=== PATIENT | male | born 1970 | race Caucasian/White ===

== ENCOUNTER 2017-11-14 16:40 | Emergency (ER) | payer SELFPAY ==
[~2017-11-14] VITALS: Ht 160 cm; Wt 123.0 kg
[~2017-11-14 16:40] MED LIST: HYPERTENSION MEDS
[2017-11-14 16:50] VITALS: BP 155/108
== END 2017-11-14 20:50 | disposition home or self-care (01) ==
LOC: ER 17:33
DX: S90.521A Blister (nonthermal), right ankle, initial encounter (principal); E11.9 Type 2 diabetes mellitus without complications; I10 Essential (primary) hypertension; F17.200 Nicotine dependence, unspecified, uncomplicated; X58.XXXA Exposure to other specified factors, initial encounter; Y93.89 Activity, other specified; Y92.89 Other specified places as the place of occurrence of the external cause; Y99.8 Other external cause status
CPT/HCPCS: 99281

== ENCOUNTER 2023-02-12 10:02 | Inpatient (IN) | payer OTHER ==
[~2023-02-12] VITALS: Ht 160 cm; Wt 127.0 kg
[2023-02-12 11:25] LABS: BASOPHILS % 0.5 % (0.0-2.0); EOSINOPHILS % 0.1 % (0.0-5.0); HEMATOCRIT. 46.3 % (42.0-52.0); HEMOGLOBIN. 15.9 g/dL (14.0-18.0); LYMPHOCYTES % 10.2 % (20.0-50.0); MEAN CORPUSCULAR HEMOGLOBIN 31.8 pg (28.0-32.0); MEAN CORPUSCULAR VOLUME 92.4 fL (80.0-94.0); MEAN PLATELET VOLUME 9.1 fl (7.4-10.4); MONOCYTES % 5.5 % (2.0-8.0); NEUTROPHILS % 83.7 % (40.0-76.0); PLATELET 163 x1000/uL (130-400); RED BLOOD CELL COUNT 5.02 mill/uL (4.7-6.1); RED CELL DISTRIBUTION WIDTH 13.6 % (11.6-14.6)
[2023-02-12 11:38] LABS: CHLORIDE 98 mEq/L (98-107)
[2023-02-12] MEDS ORDERED: VANCOMYCIN 1G PREMIX 200 ML IV NR (12:00)
[2023-02-12] MEDS ORDERED: KETOROLAC 30MG/ML VIAL IV NR (12:00)
[2023-02-12] MEDS ORDERED: SODIUM CHLORIDE 0.9% 1,000 ML IV ONE (12:00)
[2023-02-12] MEDS ORDERED: PIPERACILLIN/TAZ 3.375G PREMIX 50 ML IV NR (12:00)
[2023-02-12] MEDS ORDERED: ACETAMINOPHEN 325MG TABLET PO NR (18:35)
[2023-02-12 21:00] VITALS: BP 129/76
[2023-02-12 22:41] VITALS: BP 129/76
[2023-02-12] MEDS ORDERED: ACETAMINOPHEN 325MG TABLET PO PRN ×2 (23:00)
[2023-02-12] MEDS ORDERED: ONDANSETRON HCL 4MG/2ML INJ IV PRN (23:00)
[2023-02-12] MEDS ORDERED: DOCUSATE SODIUM 100MG CAPSULE PO PRN (23:00)
[2023-02-12] MEDS ORDERED: CEFTRIAXONE 1GM PREMIX 50 ML IV SCH (23:00)
[2023-02-12] MEDS ORDERED: LORAZEPAM 0.5MG TABLET PO PRN (23:00)
[2023-02-12] MEDS ORDERED: IPRATROPIUM/ALBUTEROL 0.5-3(2.5)MG/3ML NEB HHN PRN (23:00)
[2023-02-12] MEDS: HYDROCODONE/ACETAMINOPHEN 5/325MG TABLET PO PRN (23:36)
[2023-02-13] VITALS: BP 131/73
[2023-02-13] MEDS ORDERED: DEXTROSE 50% WATER 50ML SYRINGE IV PRN
[2023-02-13] MEDS: CEFTRIAXONE 1,000 MG in DEXTROSE 5% WATER 50 ML IV SCH (02:29)
[2023-02-13 04:00] VITALS: BP 130/76
[2023-02-13 05:41] LABS: BASOPHILS % 0.2 % (0.0-2.0); EOSINOPHILS % 0.8 % (0.0-5.0); HEMATOCRIT. 44.6 % (42.0-52.0); LYMPHOCYTES % 10.5 % (20.0-50.0); MEAN CORPUSCULAR HEMOGLOBIN 31.7 pg (28.0-32.0); MEAN CORPUSCULAR VOLUME 94.2 fL (80.0-94.0); MEAN PLATELET VOLUME 9.8 fl (7.4-10.4); MONOCYTES % 6.9 % (2.0-8.0); NEUTROPHILS % 81.6 % (40.0-76.0); PLATELET 137 x1000/uL (130-400); RED BLOOD CELL COUNT 4.74 mill/uL (4.7-6.1); RED CELL DISTRIBUTION WIDTH 13.7 % (11.6-14.6)
[2023-02-13 06:01] LABS: CHLORIDE 100 mEq/L (98-107)
[2023-02-13] MEDS: BLOOD SUGAR DIAGNOSTIC STRIP TEST SCH ×4 (07:20→21:45)
[2023-02-13 08:00] VITALS: BP 133/90
[2023-02-13] MEDS: INSULIN LISPRO 100 UNITS/ML SUBCUT SCH ×4 (09:14→21:45)
[2023-02-13 12:00] VITALS: BP 108/66
[2023-02-13] MEDS: VANCOMYCIN 1G PREMIX 200 ML IV SCH ×2 (13:00→21:18)
[2023-02-13 16:00] VITALS: BP 137/79
[2023-02-13 20:00] VITALS: BP 164/88
[2023-02-13] MEDS: CLONIDINE 0.1MG TABLET PO PRN (21:19)
[2023-02-13] MEDS: HYDROCODONE/ACETAMINOPHEN 5/325MG TABLET PO PRN (21:20)
[2023-02-14] VITALS: BP 123/81
[2023-02-14] MEDS: CEFTRIAXONE 1,000 MG in DEXTROSE 5% WATER 50 ML IV SCH (02:23)
[2023-02-14 04:00] VITALS: BP 132/81
[2023-02-14] MEDS: VANCOMYCIN 1G PREMIX 200 ML IV SCH (05:38)
[2023-02-14] MEDS: BLOOD SUGAR DIAGNOSTIC STRIP TEST SCH ×4 (07:20→21:31)
[2023-02-14] MEDS: INSULIN LISPRO 100 UNITS/ML SUBCUT SCH ×4 (07:50→21:08)
[2023-02-14 12:00] VITALS: BP 98/50
[2023-02-14 13:01] LABS: CHLORIDE 101 mEq/L (98-107)
[2023-02-14] MEDS: VANCOMYCIN 1.25GM PMX (XELLIA) 250 ML IV SCH ×2 (14:47→21:03)
[2023-02-14 16:00] VITALS: BP 114/83
[2023-02-14 20:00] VITALS: BP 143/78
[2023-02-14] MEDS: HYDROCODONE/ACETAMINOPHEN 5/325MG TABLET PO PRN (21:37)
[2023-02-15] VITALS: BP 131/81
[2023-02-15] MEDS: CEFTRIAXONE 1,000 MG in DEXTROSE 5% WATER 50 ML IV SCH (01:17)
[2023-02-15 04:00] VITALS: BP 140/83
[2023-02-15] MEDS: VANCOMYCIN 1.25GM PMX (XELLIA) 250 ML IV SCH ×2 (06:20→15:12)
[2023-02-15 07:55] LABS: BASOPHILS % 0.4 % (0.0-2.0); EOSINOPHILS % 2.1 % (0.0-5.0); HEMATOCRIT. 42.8 % (42.0-52.0); HEMOGLOBIN. 14.9 g/dL (14.0-18.0); LYMPHOCYTES % 14.7 % (20.0-50.0); MEAN CORPUSCULAR HEMOGLOBIN 32.3 pg (28.0-32.0); MEAN CORPUSCULAR VOLUME 92.8 fL (80.0-94.0); MEAN PLATELET VOLUME 9.9 fl (7.4-10.4); MONOCYTES % 11.3 % (2.0-8.0); NEUTROPHILS % 71.5 % (40.0-76.0); PLATELET 185 x1000/uL (130-400); RED BLOOD CELL COUNT 4.61 mill/uL (4.7-6.1); RED CELL DISTRIBUTION WIDTH 13.4 % (11.6-14.6)
[2023-02-15] MEDS: BLOOD SUGAR DIAGNOSTIC STRIP TEST SCH ×4 (07:56→21:36)
[2023-02-15 08:00] VITALS: BP 128/81
[2023-02-15 08:28] LABS: CHLORIDE 99 mEq/L (98-107)
[2023-02-15] MEDS: INSULIN LISPRO 100 UNITS/ML SUBCUT SCH ×4 (08:54→21:11)
[2023-02-15 11:52] LABS: CHLORIDE 101 mEq/L (98-107)
[2023-02-15 12:00] VITALS: BP 135/86
[2023-02-15] MEDS: VANCOMYCIN 1500MG in DEXTROSE 5% WATER 250ML IV SCH ×2 (14:00→22:00)
[2023-02-15 16:00] VITALS: BP 117/86
[2023-02-15 20:00] VITALS: BP 144/85
[2023-02-15] MEDS: HYDROCODONE/ACETAMINOPHEN 5/325MG TABLET PO PRN (21:13)
[2023-02-16] VITALS: BP 154/107
[2023-02-16] MEDS: VANCOMYCIN 1500MG in DEXTROSE 5% WATER 250ML IV SCH ×3 (01:04→18:00)
[2023-02-16] MEDS: CEFTRIAXONE 1,000 MG in DEXTROSE 5% WATER 50 ML IV SCH (01:05)
[2023-02-16] MEDS: BLOOD SUGAR DIAGNOSTIC STRIP TEST SCH ×4 (07:20→21:46)
[2023-02-16 08:00] VITALS: BP 165/90
[2023-02-16 08:08] LABS: BASOPHILS % 0.6 % (0.0-2.0); EOSINOPHILS % 2.7 % (0.0-5.0); HEMATOCRIT. 44.2 % (42.0-52.0); HEMOGLOBIN. 15.3 g/dL (14.0-18.0); LYMPHOCYTES % 20.2 % (20.0-50.0); MEAN CORPUSCULAR HEMOGLOBIN 32.2 pg (28.0-32.0); MEAN CORPUSCULAR VOLUME 93.3 fL (80.0-94.0); MEAN PLATELET VOLUME 9.4 fl (7.4-10.4); NEUTROPHILS % 65.5 % (40.0-76.0); PLATELET 214 x1000/uL (130-400); RED BLOOD CELL COUNT 4.74 mill/uL (4.7-6.1); RED CELL DISTRIBUTION WIDTH 13.3 % (11.6-14.6)
[2023-02-16] MEDS: INSULIN LISPRO 100 UNITS/ML SUBCUT SCH ×4 (09:35→21:51)
[2023-02-16 12:00] VITALS: BP 117/87
[2023-02-16 12:22] LABS: CHLORIDE 101 mEq/L (98-107)
[2023-02-16 16:00] VITALS: BP 124/78
[2023-02-16 20:00] VITALS: BP 154/77
[2023-02-17] VITALS: BP 188/81
[2023-02-17] MEDS: CLONIDINE 0.1MG TABLET PO PRN (00:08)
[2023-02-17] MEDS: CEFTRIAXONE 1,000 MG in DEXTROSE 5% WATER 50 ML IV SCH (01:41)
[2023-02-17] MEDS: VANCOMYCIN 1500MG in DEXTROSE 5% WATER 250ML IV SCH (02:10)
[2023-02-17 04:00] VITALS: BP 146/96
[2023-02-17] MEDS: BLOOD SUGAR DIAGNOSTIC STRIP TEST SCH ×2 (07:44→12:01)
[2023-02-17] MEDS: INSULIN LISPRO 100 UNITS/ML SUBCUT SCH ×2 (09:43→12:54)
[2023-02-17] MEDS ORDERED: SULF1TAB48 MT (11:30)
[2023-02-17] MEDS ORDERED: AMOX1TAB16 MT (11:30)
[2023-02-17 13:36] VITALS: BP 138/85
[2023-02-17] MEDS ORDERED: VANCOMYCIN 1.25GM PMX (XELLIA) 250 ML IV SCH (14:00)
== END 2023-02-17 14:50 | disposition home or self-care (01) | DRG 872 ==
LOC: ER 10:02 → EDBEDREQ 11:55 → ENRESERV 20:09 → 6EST 20:41
PROVIDERS: ADMIT Family Medicine Adult Medicine; ATTEND Family Medicine Adult Medicine
DX: A41.9 Sepsis, unspecified organism (principal); L03.116 Cellulitis of left lower limb; Z68.42 Body mass index [BMI] 45.0-49.9, adult; E11.9 Type 2 diabetes mellitus without complications; I10 Essential (primary) hypertension; M17.12 Unilateral primary osteoarthritis, left knee; M22.40 Chondromalacia patellae, unspecified knee; E66.01 Morbid (severe) obesity due to excess calories; Z79.84 Long term (current) use of oral hypoglycemic drugs
CPT/HCPCS: 36415; 71045; 73562; 73721; 80048; 80053; 80202; 82962; 83036; 83605; 84145; 85025; 93005; 93971; 99285; J0696; J1815; J1885; J2543; J3370; J7060

== ENCOUNTER 2023-06-14 10:54 | Emergency (ER) | payer OTHER ==
[~2023-06-14] VITALS: Ht 162.6 cm; Wt 124.0 kg
[~2023-06-14 10:54] MED LIST changes: +AMOX1TAB16 MT; -HYPERTENSION MEDS; +SULF1TAB48 MT
[2023-06-14 11:17] VITALS: O2SAT 95
[2023-06-14 11:55] LABS: CLARITY URINE CLEAR (CLEAR); COLOR URINE YELLOW (YELLOW); GLUCOSE URINE NEGATIVE (NEGATIVE); KETONES URINE NEGATIVE (NEGATIVE); LEUKOCYTE ESTERASE URINE NEGATIVE (NEGATIVE); NITRITE URINE NEGATIVE (NEGATIVE); OCCULT BLOOD URINE NEGATIVE (NEGATIVE); PROTEIN URINE NEGATIVE (NEGATIVE)
[2023-06-14 12:21] LABS: BASOPHILS % 0.9 % (0.0-2.0); EOSINOPHILS % 4.8 % (0.0-5.0); HEMATOCRIT. 47.8 % (42.0-52.0); HEMOGLOBIN. 16.3 g/dL (14.0-18.0); LYMPHOCYTES % 34.3 % (20.0-50.0); MEAN CORPUSCULAR HEMOGLOBIN 31.3 pg (28.0-32.0); MEAN CORPUSCULAR VOLUME 92.1 fL (80.0-94.0); MEAN PLATELET VOLUME 9.2 fl (7.4-10.4); MONOCYTES % 6.9 % (2.0-8.0); NEUTROPHILS % 53.1 % (40.0-76.0); PLATELET 171 x1000/uL (130-400); RED BLOOD CELL COUNT 5.19 mill/uL (4.7-6.1); RED CELL DISTRIBUTION WIDTH 14.1 % (11.6-14.6); WHITE BLOOD COUNT 5.5 x1000/uL (4.5-11.0)
[2023-06-14 12:26] LABS: CHLORIDE 108 mEq/L (98-107); INDEX HEMOLYSI 1 (1-3); INDEX ICTERIC 1 (1-4); INDEX LIPEMIC 1 (1-3); POTASSIUM 3.9 mEq/L (3.5-5.1); SODIUM 141 mEq/L (136-145)
[2023-06-14 13:02] LABS: ALANINE AMINOTRANSFERASE 57 IU/L (13-61); ALBUMIN 3.4 g/dL (3.4-5.0); ASPARTATE AMINOTRANSFERASE 29 IU/L (15-37); BILIRUBIN TOTAL 0.7 mg/dL (0.1-1.0); CALCIUM 8.3 mg/dL (8.5-10.1); CARBON DIOXIDE 27 mEq/L (21-32); CREATININE 0.6 mg/dL (0.6-1.3); GLUCOSE 146 mg/dL (70-105); UREA NITROGEN BLOOD 12 mg/dL (7-21)
[2023-06-14] MEDS ORDERED: LIDOCAINE 5% PATCH TOP SCH (16:30)
[2023-06-14] MEDS ORDERED: LIDO700A15 TP (17:32)
[2023-06-14] MEDS ORDERED: NAPR-677 MT (17:32)
[2023-06-14 18:36] VITALS: BP 152/84; PULSE 95; RESP 18; TEMP 98.1
== END 2023-06-14 18:39 | disposition home or self-care (01) ==
LOC: ER 11:29
DX: R10.9 Unspecified abdominal pain (principal); E11.9 Type 2 diabetes mellitus without complications; I10 Essential (primary) hypertension
CPT/HCPCS: 36415; 74176; 80053; 81003; 85025; 99284

== ENCOUNTER 2024-03-20 15:21 | Inpatient (IN) | payer OTHER ==
[~2024-03-20] VITALS: Ht 167.6 cm; Wt 133.4 kg
[~2024-03-20 15:21] MED LIST changes: +LIDO700A15 TP; +NAPR-677 MT
[2024-03-20] MEDS: SODIUM CHLORIDE 0.9% 1000ML BAG (SEPSIS BOLUS) IV ONE (16:15)
[2024-03-20 17:49] LABS: CHLORIDE 102 mEq/L (98-107); HEMATOCRIT. 48.5 % (42.0-52.0); HEMOGLOBIN. 16.5 g/dL (14.0-18.0); MEAN CORPUSCULAR HEMOGLOBIN 32.2 pg (28.0-32.0); MEAN CORPUSCULAR HGB CONC 34.1 g/dL (31.0-37.0); MEAN CORPUSCULAR VOLUME 94.4 fL (80.0-94.0); MEAN PLATELET VOLUME 9.3 fl (7.4-10.4); PLATELET 156 x1000/uL (130-400); POTASSIUM 3.6 mEq/L (3.5-5.1); RED BLOOD CELL COUNT 5.13 mill/uL (4.7-6.1); RED CELL DISTRIBUTION WIDTH 13.6 % (11.6-14.6); SODIUM 136 mEq/L (136-145); WHITE BLOOD COUNT 16.5 x1000/uL (4.5-11.0)
[2024-03-20 17:50] LABS: CALCIUM 8.9 mg/dL (8.7-10.4); CARBON DIOXIDE 25 mEq/L (21-32)
[2024-03-20 17:51] LABS: DIFFERENTIAL COMMENT 1
[2024-03-20 17:55] LABS: CREATININE 0.9 mg/dL (0.6-1.3); GLUCOSE 115 mg/dL (70-105); UREA NITROGEN BLOOD 13 mg/dL (9-23)
[2024-03-20 18:33] LABS: CLARITY URINE CLOUDY (CLEAR); COLOR URINE DARK YELLOW (YELLOW); GLUCOSE URINE NEGATIVE (NEGATIVE); KETONES URINE 1+ (NEGATIVE); LEUKOCYTE ESTERASE URINE TRACE (NEGATIVE); NITRITE URINE NEGATIVE (NEGATIVE); OCCULT BLOOD URINE NEGATIVE (NEGATIVE); PROTEIN URINE 2+ (NEGATIVE); SPECIFIC GRAVITY URINE 1.029 (1.005-1.030)
[2024-03-20 18:37] LABS: PLATELET ESTIMATE NORMAL
[2024-03-20 18:38] LABS: ANISOCYTOSIS 1+
[2024-03-20] MEDS: AMPICILLIN SOD/SULBACTAM NA 3 G in SODIUM CHLORIDE 0.9% 100 ML IV SCH (18:45)
[2024-03-20 18:47] LABS: AMORPHOUS SEDIMENT URINE 1+ /lpf; BACTERIA URINE 1+; RBC URINE 0-2 /hpf (0-2); SQUAMOUS EPITHELIAL CELL URINE 1+ /lpf (RARE/1+)
[2024-03-20 20:00] VITALS: BP 161/89; PULSE 105; RESP 18; TEMP 98.2
[2024-03-20 21:30] VITALS: BP 161/84; PULSE 110; RESP 18; TEMP 98.2
[2024-03-20] MEDS ORDERED: IPRATROPIUM/ALBUTEROL 0.5-3(2.5)MG/3ML NEB HHN PRN (21:30)
[2024-03-20] MEDS ORDERED: ONDANSETRON HCL 4MG/2ML INJ IV PRN (21:30)
[2024-03-20] MEDS ORDERED: DEXTROSE 50% WATER 50ML SYRINGE IV PRN (21:30)
[2024-03-20] MEDS ORDERED: CLONIDINE 0.1MG TABLET PO PRN (21:30)
[2024-03-20] MEDS ORDERED: GUAIFENESIN 200MG/10ML SUGAR FREE UDC PO PRN (21:30)
[2024-03-20] MEDS ORDERED: DOCUSATE SODIUM 100MG CAPSULE PO PRN (21:30)
[2024-03-21] VITALS: BP 161/82; PULSE 109; RESP 19; TEMP 98.2
[2024-03-21 04:00] VITALS: BP 100/67; PULSE 113; RESP 19; TEMP 98.8
[2024-03-21 06:30] LABS: CHLORIDE 101 mEq/L (98-107); POTASSIUM 3.5 mEq/L (3.5-5.1); SODIUM 135 mEq/L (136-145)
[2024-03-21 06:31] LABS: CALCIUM 8.7 mg/dL (8.7-10.4); CARBON DIOXIDE 26 mEq/L (21-32)
[2024-03-21 06:36] LABS: CREATININE 0.8 mg/dL (0.6-1.3); GLUCOSE 103 mg/dL (70-105); HEMATOCRIT. 44.4 % (42.0-52.0); HEMOGLOBIN. 15.3 g/dL (14.0-18.0); MEAN CORPUSCULAR HEMOGLOBIN 31.9 pg (28.0-32.0); MEAN CORPUSCULAR HGB CONC 34.3 g/dL (31.0-37.0); MEAN PLATELET VOLUME 9.9 fl (7.4-10.4); PLATELET 134 x1000/uL (130-400); RED BLOOD CELL COUNT 4.78 mill/uL (4.7-6.1); RED CELL DISTRIBUTION WIDTH 13.8 % (11.6-14.6); TRIGLYCERIDE 89 mg/dL (0-150); UREA NITROGEN BLOOD 12 mg/dL (9-23)
[2024-03-21 06:37] LABS: LDL CHOLESTEROL 34 mg/dL (5-100)
[2024-03-21 06:38] LABS: CHOLESTEROL 88 mg/dL (<200); HDL CHOLESTEROL 40 mg/dL (>55); PHOSPHORUS 2.9 mg/dL (2.5-4.9)
[2024-03-21 06:40] LABS: T4 FREE 0.95 ng/dL (0.89-1.76)
[2024-03-21 06:41] LABS: THYROID STIMULATING HORMONE 0.13 uIU/mL (0.55-4.78)
[2024-03-21 07:01] LABS: DIFFERENTIAL COMMENT 1
[2024-03-21] MEDS: INSULIN LISPRO 100 UNITS/ML SUBCUT SCH (07:50)
[2024-03-21 08:00] VITALS: BP 90/49; PULSE 103; RESP 18; TEMP 98.2
[2024-03-21] MEDS: BENAZEPRIL 10MG TABLET PO SCH (09:10)
[2024-03-21 12:00] VITALS: BP 119/84; PULSE 106; RESP 18; TEMP 98.2
[2024-03-21] MEDS: BLOOD SUGAR DIAGNOSTIC STRIP TEST SCH (12:17)
[2024-03-21 14:12] LABS: PLATELET ESTIMATE NORMAL
[2024-03-21] MEDS: VANCOMYCIN 2,000 MG in DEXT 5% WATER 500 ML IV NR (15:45)
[2024-03-21 16:00] VITALS: BP 135/74; PULSE 60; RESP 20; TEMP 98.2
[2024-03-21] MEDS: CLINDAMYCIN HCL 150MG CAPSULE PO SCH (18:01)
[2024-03-21 20:00] VITALS: BP 115/67; PULSE 100; RESP 18; TEMP 99.5
[2024-03-21] MEDS: ATORVASTATIN CALCIUM 40MG TABLET PO SCH (21:18)
[2024-03-21] MEDS: VANCOMYCIN 1.25GM PMX (XELLIA) 250 ML IV SCH (22:17)
[2024-03-22] VITALS: BP 127/73; PULSE 95; RESP 20; TEMP 98.8
[2024-03-22 08:00] VITALS: BP 115/66; PULSE 91; RESP 18; TEMP 96.6
[2024-03-22 12:00] VITALS: BP 107/55; PULSE 92; RESP 18; TEMP 98.2
[2024-03-22] MEDS: VANCOMYCIN 1.25GM PMX (XELLIA) 250 ML IV SCH (14:26)
[2024-03-22] MEDS: ACETAMINOPHEN 325MG TABLET PO PRN (14:40)
[2024-03-22 16:00] VITALS: BP 120/74; PULSE 90; RESP 19; TEMP 98.8
[2024-03-22 20:00] VITALS: BP 151/83; PULSE 88; RESP 19; TEMP 97.9
[2024-03-23] VITALS: BP 133/78; PULSE 89; RESP 20; TEMP 98.8
[2024-03-23 05:08] LABS: CARBON DIOXIDE 29 mEq/L (21-32); CHLORIDE 101 mEq/L (98-107); POTASSIUM 3.4 mEq/L (3.5-5.1); SODIUM 136 mEq/L (136-145)
[2024-03-23 05:09] LABS: CALCIUM 8.5 mg/dL (8.7-10.4)
[2024-03-23 05:13] LABS: CREATININE 0.6 mg/dL (0.6-1.3); GLUCOSE 131 mg/dL (70-105)
[2024-03-23 05:14] LABS: UREA NITROGEN BLOOD 10 mg/dL (9-23)
[2024-03-23 05:15] LABS: VANCOMYCIN TROUGH 13.3 ug/mL (5.0-10.0)
[2024-03-23 06:29] LABS: BASOPHILS % 0.3 % (0.0-2.0); EOSINOPHILS % 1.3 % (0.0-5.0); HEMATOCRIT. 43.3 % (42.0-52.0); HEMOGLOBIN. 14.7 g/dL (14.0-18.0); MEAN CORPUSCULAR HEMOGLOBIN 31.8 pg (28.0-32.0); MEAN CORPUSCULAR HGB CONC 34.1 g/dL (31.0-37.0); MEAN CORPUSCULAR VOLUME 93.4 fL (80.0-94.0); MEAN PLATELET VOLUME 10.4 fl (7.4-10.4); MONOCYTES % 9.9 % (2.0-8.0); NEUTROPHILS % 75.5 % (40.0-76.0); PLATELET 162 x1000/uL (130-400); RED BLOOD CELL COUNT 4.63 mill/uL (4.7-6.1); RED CELL DISTRIBUTION WIDTH 13.6 % (11.6-14.6)
[2024-03-23 08:00] VITALS: BP 134/79; PULSE 84; RESP 19; TEMP 97.5
[2024-03-23 12:00] VITALS: BP 127/68; PULSE 76; RESP 17; TEMP 97.9
[2024-03-23 16:00] VITALS: BP 132/85; PULSE 88; RESP 18; TEMP 97.3
[2024-03-24 08:00] VITALS: BP 142/89; PULSE 91; RESP 18; TEMP 97.7
[2024-03-24 11:18] LABS: BASOPHILS % 0.8 % (0.0-2.0); EOSINOPHILS % 2.2 % (0.0-5.0); HEMATOCRIT. 44.9 % (42.0-52.0); LYMPHOCYTES % 19.3 % (20.0-50.0); MEAN CORPUSCULAR HEMOGLOBIN 31.6 pg (28.0-32.0); MEAN CORPUSCULAR HGB CONC 33.4 g/dL (31.0-37.0); MEAN CORPUSCULAR VOLUME 94.5 fL (80.0-94.0); MONOCYTES % 10.7 % (2.0-8.0); PLATELET 186 x1000/uL (130-400); RED BLOOD CELL COUNT 4.75 mill/uL (4.7-6.1); RED CELL DISTRIBUTION WIDTH 13.6 % (11.6-14.6); WHITE BLOOD COUNT 7.8 x1000/uL (4.5-11.0)
[2024-03-24 11:29] LABS: CARBON DIOXIDE 29 mEq/L (21-32); CHLORIDE 102 mEq/L (98-107); POTASSIUM 3.6 mEq/L (3.5-5.1); SODIUM 138 mEq/L (136-145)
[2024-03-24 11:30] LABS: CALCIUM 8.7 mg/dL (8.7-10.4)
[2024-03-24 11:35] LABS: CREATININE 0.6 mg/dL (0.6-1.3); GLUCOSE 146 mg/dL (70-105); UREA NITROGEN BLOOD 9 mg/dL (9-23)
[2024-03-24 12:00] VITALS: BP 130/74; PULSE 82; RESP 19; TEMP 97.9
[2024-03-24 16:00] VITALS: BP 134/82; PULSE 80; RESP 18; TEMP 98.2
[2024-03-24] MEDS ORDERED: AMOX1TAB16 PO (18:25)
[2024-03-24] MEDS ORDERED: SULF1TAB48 PO (18:25)
[2024-03-25 08:00] VITALS: BP 145/91; PULSE 77; RESP 19; TEMP 97.9
[2024-03-25 12:00] VITALS: BP 133/81; PULSE 78; RESP 18; TEMP 97.5
[2024-03-25 14:53] VITALS: BP 133/81; PULSE 78; TEMP 97.5; O2SAT 95
== END 2024-03-25 16:02 | disposition home health service (06) | DRG 872 ==
LOC: ER 15:21 → EDBEDREQ 20:26 → EDBEDREQTM 20:26 → 6EST 21:55
PROVIDERS: ADMIT Internal Medicine; ATTEND Internal Medicine
PROC: 0H9LXZZ Drainage of Left Lower Leg Skin, External Approach (ICD-10-PCS; principal; 2024-03-23)
DX: A41.9 Sepsis, unspecified organism (principal); L03.116 Cellulitis of left lower limb; N39.0 Urinary tract infection, site not specified; Z68.42 Body mass index [BMI] 45.0-49.9, adult; I10 Essential (primary) hypertension; E11.65 Type 2 diabetes mellitus with hyperglycemia; E78.5 Hyperlipidemia, unspecified; I87.2 Venous insufficiency (chronic) (peripheral); M17.12 Unilateral primary osteoarthritis, left knee; E66.01 Morbid (severe) obesity due to excess calories; F17.210 Nicotine dependence, cigarettes, uncomplicated; Z79.84 Long term (current) use of oral hypoglycemic drugs; Z79.899 Other long term (current) drug therapy
CPT/HCPCS: 36415; 73721; 80048; 80061; 80202; 81003; 82962; 83036; 83605; 83735; 84100; 84439; 84443; 85025; 87070; 93971; 97162; 97166; 97535; 99285; J0295; J1815; J3370; J7030; J7050; J7060